=== PATIENT | male | born 1995 | race Caucasian/White ===

== ENCOUNTER 2022-05-30 22:07 | Emergency (ER) | payer OTHER, SELFPAY ==
[2022-05-30 22:08] VITALS: PULSE 119; RESP 18; TEMP 36.3; BMI 29.3
[2022-05-30 22:10] VITALS: BP 165/75; PULSE 114; RESP 18; O2SAT 96
--- NOTE | 2022-05-30 23:31 | EDS_ITS ---
HPI History of Present Illness Chief Complaint: Laceration Informant: patient Narrative Narrative: Patient has a laceration near his left eyebrow after impact playing basketball. He did not fall or lose consciousness. No notable headache. No numbness tingling weakness. He is not on any blood thinners. No other injuries. Nothing really makes this worse. Bleeding stopped easily. He has no visual complaints. Last tetanus is unknown. PFSH PFSH Medical History no medical history Home Medications NK 05/30/22 [History Last Taken Unknown] Allergy/AdvReac Type Severity Reaction Status Date / Time No Known Allergies Allergy Verified 05/30/22 22:11 Family History no significant family his Surgical History no surgical history Social History Smoking Status: Never smoker ROS ROS ED Eyes Eyes: Denies blurry vision or change in vision ENT ENT ED: Reports other Details: Laceration as in history of present illness. Gastrointestinal Gastrointestinal: Denies nausea or vomiting Musculoskeletal Musculoskeletal: Denies neck pain Integumentary Reports other Details: Laceration. Neurologic Neurologic: Denies headache(s), paresthesias or weakness Hematologic/Lymphatic Hematologic/Lymphatic: Denies easy bleeding or easy bruising EXAM Physical Exam Narrative Exam Narrative: Patient sitting quietly and calmly in bed. No acute distress. HEENT shows a hockey-stick shaped laceration through the left eyebrow. Total length is about 2.5 cm. No bleeding. No notable swelling. It does open up a bit. No bony tenderness or step-off is noted. Eyes: Eyelid functions normally. Range of motion is normal. No limitation of gaze. Pupil is normal. Neck is supple nontender Cardiorespiratory clear unlabored breathing with normal saturations. Extremities show no sign of injury Neurologically is awake alert appropriate and ask normal per her family member in the room. Const Vital Signs: 05/30/22 22:08 05/30/22 22:10 Temperature 97.4 F L Temperature Source Temporal Pulse Rate 119 H 114 H Respiratory Rate 18 18 Blood Pressure 165/75 H Blood Pressure Mean 105 Pulse Ox 96 Oxygen Delivery Method Room Air PROC Procedures Lacerations Left eyebrow: Length: 2.5 cm Depth: Sub Q Shape: Flap Prep: Sterile Conditions and Shure-Clens Laceration repair: Irrigated, Lidocaine with epi, Local and Skin sutures Irrigated (ml): 100 Number of Sutures/Agency: 6 Suture Information: Ethilon, Simple and 6-0 Comment: L shaped laceration, scrubbed and irrigated. L ET applied. Then 3 cc of 1% lidocaine with epi. Sutured with 6 interrupted 6-0 Ethilon. Due to location, we did not cut his eyebrows back. MDM MDM MDM Narrative Medical decision making narrative: See procedure note. I discussed reasons for follow-up with patient. He should have these out in about 5 days. He can follow-up with his primary physician. He should also have his blood pressure rechecked as it is up a bit today. I do not think this needs blood work or further evaluation acutely. Discharge Plan Triage Chief Complaint: Laceration ED Provider: Lazarus Amado Dx/Rx/DC Orders Clinical Impression: Laceration of eyebrow, left, Injury while playing basketball, Suture of skin wound Instructions: ED Laceration: All Closures Prescriptions: No Action NK Primary Care Provider: Care Physician,No Primary Referrals: Joanne Hernandez MD [Med Staff - [employer]] - 5 Days for suture removal Disposition Disposition: Home, Self Care
[2022-05-31] MEDS: Lidocaine 1% /Epi 1:100 (20ml) 20 ML Vial INFILT (00:15)
[2022-05-31] MEDS: Lidocaine/Epi/Tetracaine 50 ML 1 APPLIC TOPICAL (00:18)
[2022-05-31] MEDS: Diphth,Pertuss(Acell),Tet Vac 0.5 ML Vial IM (00:24)
[2022-05-31 01:08] VITALS: BP 124/67; PULSE 69; RESP 18; O2SAT 100
== END 2022-05-31 01:09 | disposition home or self-care (01) ==
LOC: ED 23:52
PROVIDERS: Emergency Provider Emergency Medicine; Visit Provider Emergency Medicine
DX: S01.112A Laceration without foreign body of left eyelid and periocular area, initial encounter (principal); Y93.67 Activity, basketball; Z23 Encounter for immunization
CPT/HCPCS: 12011; 90471; 90715; 99283

== ENCOUNTER → 2023-09-13 | Outpatient (CLI) | payer OTHER, SELFPAY ==
[2023-09-13 15:49] LABS: Bacteria 0 SEEN /hpf (None Seen); Mucous, Urine 0 SEEN /hpf (<or=2+); Red Blood Cells-Urine 0 SEEN /hpf (0-5); Squamous Epithelial Cells - UA 0 SEEN /hpf (0-5); White Blood Cells 0 SEEN /hpf (0-5)
[2023-09-13 17:44] LABS: Absolute Lymphocyte Count 2.69 X10^3/uL (0.83-4.51); Absolute Neutrophil Count 2.3 X10^3/uL (2.0-7.7); Basophil# 0.03 X10^3/uL; Basophil% 0.5 % (0-1); Eosinophil# 0.07 X10^3/uL; Eosinophils% 1.3 % (0-5); Hematocrit 42.1 % (40-54); Hemoglobin 13.6 g/dL (13.0-16.5); Lymphocyte # 2.69 X10^3/ul (0.83-4.51); Mean Corp Hgb Conc 32.3 g/dL (32-36); Mean Corpuscular Hgb 27.3 pg (27.0-32.0); Mean Corpuscular Volume 84.4 fL (80-94); Mean Platelet Vol. 10.3 fl (6.2-12.0); Monocyte# 0.41 X10^3/uL; Monocyte% 7.5 % (0-10); NRBC Flagged by Analyzer 0 % (0-5); Neutrophil # 2.28 X10^3/uL (2.7-7.7); Neutrophil % 41.5 % (47-70); Platelet Count 312 K/mm3 (150-450); RBC Distribution Width CV 12.8 % (11.6-14.6); Red Blood Count 4.99 M/mm3 (4.6-6.2); White Blood Count 5.5 K/mm3 (4.4-11.0)
[2023-09-13 17:51] LABS: Color, Urine Yellow (Yellow); Glucose, Dipstick Normal (Normal); Ketone-Dipstick Negative (Negative); Leukocyte Esterase-Dipstick Negative /ul (Negative); Nitrite-Dipstick Negative (Negative); Occult Blood-Urine Negative /ul (Negative); Protein-Dipstick Negative (Negative); Specific Gravity, Urine 1.015 (1.002-1.030); Urine Bilirubin Dipstick Negative (Negative); Urine Clarity Clear (Clear); Urine Urobilinogen Normal (Normal)
[2023-09-13 18:04] LABS: ALB/GLOB Ratio 1.1 RATIO (0.9-2.4); AST(SGOT) 27 U/L (15-37); Alanine Aminotransfer ALT/SGPT 53 U/L (16-61); Albumin, Serum 4.1 g/dL (3.2-5.0); Alkaline Phosphatase 106 U/L (45-117); Anion Gap 8 (5-15); BUN 20 mg/dL (7-18); BUN/Creat Ratio 20.2 RATIO (10-20); Calcium,Total 9.4 mg/dL (8.5-10.1); Chloride 107 mmol/L (98-107); Cholesterol 141 mg/dL (200); Creatinine, Serum 0.99 mg/dL (0.70-1.30); EST Glomerular Filtration Rate 95 mL/min (>60); Est Glom Filt Rate - Afr Amer 115 mL/min (>60); Globulin 3.9 g/dL (2.2-4.2); Glucose 96 mg/dL (74-106); High Density Lipoprotein 49 mg/dL; Sodium Level 140 mmol/L (136-145); T4 Free Direct 0.93 ng/dL (0.76-1.46); Thyroid Stim Hormone (TSH) 1.87 uIU/mL (0.358-3.74); Triglycerides 45 mg/dL; Very Low Density Lipoprotein 9 mg/dL (5-40)
[2023-09-19 08:12] LABS: Anti-Thyroglobulin AB < 1.0 IU/mL (0.0-0.9); Thyroglobulin, Serum Qt. 58.5 ng/mL (1.4-29.2); Thyroid Peroxidase AB < 9 IU/mL (0-34); Thyroid Stim Immunoglob <0.10 IU/L (0.00-0.55)
== END | disposition home or self-care (01) ==
LOC: MFPLAB 15:46
PROVIDERS: PCP Family Medicine; Visit Provider Family Medicine
DX: Z00.00 Encounter for general adult medical examination without abnormal findings (principal); E01.0 Iodine-deficiency related diffuse (endemic) goiter
CPT/HCPCS: 36415; 80053; 80061; 81001; 84432; 84439; 84443; 84445; 85025; 86376; 86800

== ENCOUNTER → 2023-10-18 | Outpatient (CLI) | payer OTHER, SELFPAY ==
--- NOTE | 2023-10-18 14:37 | US_ITS ---
STUDY: THYROID ULTRASOUND REASON FOR EXAM: Male, 28 years old. THYROMEGALY TECHNIQUE: Ultrasound evaluation of the thyroid was performed with real-time and static lawler-scale imaging. COMPARISON: None. FINDINGS: RIGHT LOBE: The right lobe of the thyroid gland measures 5.3 x 1.6 x 1.5 cm. There is a homogeneous echotexture. There are no demonstrated solid, cystic or complex lesions. LEFT LOBE: The left lobe of the thyroid gland measures 5.9 x 2.2 x 1.8 cm. There is a homogeneous echotexture. Nodule 1:8.8 x 5 mm solid hypoechoic wider than tall smoothly marginated nodule with no echogenic foci (TR 4) in the mid left lobe consistent with an adenoma. Nodule 2:21 x 18 x 16 mm solid hypoechoic wider than tall smoothly marginated nodule with no echogenic foci (TR 4) and inferior left lobe for which ultrasound-guided biopsy is recommended. ISTHMUS: The isthmus measures 4 mm thick. . The regional lymph nodes are normal. US/Thyroid IMPRESSION: Dominant nodule in the inferior left lobe and for which ultrasound-guided biopsy is recommended. Electronically Signed: Wild Evans MD at 12:52 EDT ,
== END | disposition home or self-care (01) ==
LOC: US 14:35
PROVIDERS: PCP Family Medicine; Referring Provider Family Medicine; Visit Provider Family Medicine
DX: E01.0 Iodine-deficiency related diffuse (endemic) goiter (principal)
CPT/HCPCS: 76536

== ENCOUNTER → 2024-10-25 | Outpatient (CLI) | payer OTHER, SELFPAY ==
--- NOTE | 2024-10-25 15:12 | US_ITS ---
PROCEDURE: THYROID 10/25/2024 REASON FOR EXAM: NODULE, SCHEDULE IN 2024 TECHNIQUE: Procedure Code: USTHY Modality: US Procedure: THYROID COMPARISON: September 2023. FINDINGS: Right thyroid lobe size: 5.4 x 1.8 x 1.6 cm Left thyroid lobe size: 5.5 x 1.9 x 1.6 cm Isthmus: 0.3 cm Background parenchymal echotexture is slightly heterogeneous Nodules: 1. Lobe: Left, Location: Upper, Size: 0.9 x 0.9 x 0.9 cm, Stability: stable Composition: Solid or almost completely solid (+2) Echogenicity: Hypoechoic (+2) Margin: Smooth (+0) Shape: Wider than tall (+0) Echogenic Foci: None (+0) TI-RADS: 4 2. Lobe: Left, Location: Lobe, Size: 1.8 x 1.7 x 1.6 cm, Stability: Stable. Composition: Solid or almost completely solid (+2) Echogenicity: Hypoechoic (+2) Margin: Smooth (+0) Shape: Wider than tall (+0) Echogenic Foci: None (+0) TI-RADS: 4 US/Thyroid IMPRESSION: Left-sided thyroid nodules with left lower thyroid nodule dominant. Nodule 1. TI rads 4. No follow-up needed. Nodule 2. TI rads 4. Fine-needle aspiration recommended. RECOMMENDATION: TR 1 benign (0 points): No fine-needle aspirate or follow-up required. TR 2 not suspicious (1-2 points): No fine-needle aspirate or follow up required . TR 3 mildly suspicious (3 points): 1.5 centimeter or greater requires follow up at 1, 3 and 5 years. 2.5 centimeters or greater requires fine-needle aspirate. TR 4: Moderately suspicious (4-6 points): 1 centimeter greater requires follow- up in 1, 2, 3 and 5 years. 1.5 centimeters or greater requires fine-needle aspirate. TR 5 highly suspicious (greater than or equal to 7 points,): 0.5 centimeters or greater requires annual follow up up to 5 years. 1.0 centimeters or greater requires fine-needle aspirate. Fine-needle aspirate no more than 2 nodules. Biopsy up to two highest TI-RADS s cores. Follow-up no more than 4 nodules with highest TI-RADS points score. Based on most suspicious nodule. Nodule size = largest diameter Only evaluate nodule if =>5 mm. Growth > 20% in 2 dimensions = worsening. Reading Location: [place] [id number]
== END | disposition home or self-care (01) ==
PROVIDERS: PCP Family Medicine; Referring Provider Family Medicine; Visit Provider Family Medicine
DX: E04.1 Nontoxic single thyroid nodule (principal)
CPT/HCPCS: 76536